=== PATIENT | male | born 1995 | race Caucasian/White ===

== ENCOUNTER 2018-01-08 05:33 | Day surgery (SDC) | payer SELFPAY ==
[~2018-01-08] VITALS: Ht 185.4 cm; Wt 75.8 kg
[2018-01-08] VITALS (9 sets, daily range): BP systolic 111–138; BP diastolic 55–80; PULSE 65–81; TEMP 97.2–98.1
[2018-01-08] MEDS ORDERED: NORCO 325 MG-51 TAB PO (06:30)
[2018-01-08] MEDS ORDERED: PERCOCET 325 MG1 TA2 PO (10:09)
[2018-01-08] MEDS ORDERED: COLACE 100100 MG/CAP PO (10:10)
[2018-01-08] MEDS ORDERED: ZOFRAN 4MG T4 MG/TAB PO (10:10)
[2018-01-08] MEDS ORDERED: MOBIC15 MG PO (10:10)
== END 2018-01-08 15:45 | disposition home or self-care (01) ==
LOC: SDCO 05:33
DX: S42.022A Displaced fracture of shaft of left clavicle, initial encounter for closed fracture (principal); G89.18 Other acute postprocedural pain; M25.512 Pain in left shoulder
CPT/HCPCS: C1713; J0690; J1100; J1885; J2250; J2405; J2704; J3010; J7120